=== PATIENT | male | born 1965 | race Two or more races ===

== ENCOUNTER 2018-04-23 10:12 | Emergency (ER) | payer OTHER ==
[~2018-04-23] VITALS: Ht 170.2 cm; Wt 89.0 kg
[2018-04-23 10:21] VITALS: BP 118/86
== END 2018-04-23 11:19 | disposition home or self-care (01) ==
LOC: ED 10:42
DX: S39.012A Strain of muscle, fascia and tendon of lower back, initial encounter (principal); X50.0XXA Overexertion from strenuous movement or load, initial encounter; Y93.G9 Activity, other involving cooking and grilling; Y99.0 Civilian activity done for income or pay; Y92.69 Other specified industrial and construction area as the place of occurrence of the external cause
CPT/HCPCS: 99281

== ENCOUNTER 2018-11-06 09:53 | Emergency (ER) | payer MEDICAID, OTHER ==
[~2018-11-06] VITALS: Ht 170.2 cm; Wt 94.0 kg
--- NOTE | 2018-11-06 10:35 | NUR ---
provided ice pack left wrist
[2018-11-06] MEDS ORDERED: PROPOFOL 10 MG/ML, 20ML ONE (11:24)
[2018-11-06] MEDS ORDERED: LIDOCAINE 1%, 10ML INFIL ONE (11:30)
[2018-11-06] MEDS ORDERED: PROPOFOL 10 MG/ML, 20ML IVPush ONE (11:30)
[2018-11-06] MEDS ORDERED: HYDROmorphone 1 MG/ML, 1ML IV ONE (11:30)
[2018-11-06] MEDS ORDERED: LIDOCAINE-MPF 1%, 5ML ONE (11:31)
[2018-11-06] MEDS ORDERED: HYDROmorphone 1 MG/ML, 1ML ONE (11:32)
--- NOTE | 2018-11-06 11:35 | NUR ---
MEDICATED FOR LEFT WRIST PAIN PER ORDERS. TECH WORKING ON GETTING SUPPLIES REQUESTED BY MD FOR SPLINTING. LIDO AT BEDSIDE FOR ANTICIPATED NERVE BLOCK
[2018-11-06 12:13] VITALS: BP 134/90
--- NOTE | 2018-11-06 12:13 | NUR ---
VS UPDATED AND WNL. AWAITING ORTHOPEDIST. PT RESTING WITH NO COMPLAINTS.
--- NOTE | 2018-11-06 12:33 | NUR ---
ortho at bedside for cast at this time. vss. no needs at this time.
--- NOTE | 2018-11-06 13:50 | NUR ---
additional orders received. pt to ct now.
== END 2018-11-06 15:53 | disposition home or self-care (01) ==
LOC: ED 11:08
DX: S52.502A Unspecified fracture of the lower end of left radius, initial encounter for closed fracture (principal); W01.0XXA Fall on same level from slipping, tripping and stumbling without subsequent striking against object, initial encounter; Y93.89 Activity, other specified; Y92.410 Unspecified street and highway as the place of occurrence of the external cause; Y99.8 Other external cause status
CPT/HCPCS: 25605; 73110; 73200; 73221; 96374; 99284; J1170

== ENCOUNTER 2019-11-01 09:25 | Emergency (ER) | payer MEDICAID ==
[~2019-11-01] VITALS: Ht 170.2 cm; Wt 102.0 kg
[2019-11-01 09:28] VITALS: BP 127/98
[2019-11-01 10:31] LABS: BASOPHILS # (AUTO) 0.04 x10^3/uL (0-0.1); BASOPHILS % (AUTO) 1 % (0-1); EOSINOPHILS # (AUTO) 0.01 x10^3/uL (0-0.4); EOSINOPHILS % (AUTO) 0 % (1-7); LYMPHOCYTES % (AUTO) 15 % (22-44); MD NO; MEAN CORPUSCULAR HEMOGLOBIN 31.3 pg (27.5-34.5); MEAN CORPUSCULAR HGB CONC 33.4 g/dL (33.2-36.2); MEAN CORPUSCULAR VOLUME 93.6 fL (81-97); MEAN PLATELET VOLUME 6.4 fL (7.4-10.4); MONOCYTES # (AUTO) 0.94 x10^3/uL (0.2-0.8); MONOCYTES % (AUTO) 12 % (2-9); NEUTROPHILS # (AUTO) 5.76 x10^3/uL (1.8-6.8); NEUTROPHILS % (AUTO) 72 % (42-75); PLATELET COUNT 275 x10^3/uL (130-400); RED BLOOD COUNT 4.42 x10^6/uL (4.38-5.82); RED CELL DISTRIBUTION WIDTH 13.7 % (9.4-14.8)
[2019-11-01 10:42] LABS: ALBUMIN 3.5 g/dL (3.4-5.0); ANION GAP 8 mmol/L (5-15); CALCIUM 8.8 mg/dL (8.5-10.1); CHLORIDE 105 mmol/L (98-107); CREATININE 0.73 mg/dL (0.7-1.3)
== END 2019-11-01 11:42 | disposition home or self-care (01) ==
LOC: ED 10:03
DX: B34.9 Viral infection, unspecified (principal); R00.0 Tachycardia, unspecified; I10 Essential (primary) hypertension; Z87.891 Personal history of nicotine dependence
CPT/HCPCS: 36415; 71046; 80048; 82040; 85025; 93005; 99285

== ENCOUNTER 2021-01-23 07:14 | Emergency (ER) | payer MEDICAID ==
[~2021-01-23] VITALS: Ht 170.2 cm; Wt 88.5 kg
[2021-01-23 07:47] VITALS: BP 134/88
--- NOTE | 2021-01-23 07:57 | NUR ---
PT PRESENTS TO ED W C/O BLOOD ON PENIS. STATES THEY WERE NOT ABLE TO URINATE THIS MORNING. PT DENIES SEXUAL CONTACT, STATES THE BLOOD MAY BE A RESULT OF PANT ZIPPER CATCHING ON PENIS. PT A&O, RESPS EVEN ANDUNLABORED, VSS, NADN. PT INSTRUCTED TO PROVIDE CLEAN CATCH, UA SUPPLIES AT BEDSIDE.
[2021-01-23] MEDS ORDERED: NEOSPORIN OINT. PKT 1 PACKET ONE (08:05)
--- NOTE | 2021-01-23 08:08 | NUR ---
VERBAL ORDER RECEIVED FOR NEOSPORIN TOPICAL TO BE APPLIED TO PENIS
[2021-01-23] MEDS ORDERED: NEOSPORIN OINT. PKT 1 PACKET TP ONE (08:30)
--- NOTE | 2021-01-23 08:32 | NUR ---
PT INSTRUCTED TO PROVIDE UA, STATES HE HAS NO URGE, REFUSES TO ATTEMPT, WILL REFUSE STRAIGHT CATH IF ORDERED. MAYNOR BRAVO NOTIFIED. NO ADDITIONAL ORDERS RECIEVED.
--- NOTE | 2021-01-23 08:56 | NUR ---
PROVIDER OK'D DISCHARGE WITHOUT URINE. DISCHARGE INSTRUCTIONS REVIEWED WITH PATIENT, UPON DISCHARGE, PT BECAME UPSET AND STATED "CAN YOU GET THE FUCK OUT SO I CAN CHANGE, I SHOULD HAVE [facility] G[facility] TO [facility]". AMBULATED STEADILY TO DISCHARGE, NADN AT DISCHARGE.
== END 2021-01-23 09:00 | disposition home or self-care (01) ==
LOC: ED 08:28
DX: S30.812A Abrasion of penis, initial encounter (principal); I10 Essential (primary) hypertension; F17.200 Nicotine dependence, unspecified, uncomplicated; X58.XXXA Exposure to other specified factors, initial encounter; Y93.89 Activity, other specified; Y92.89 Other specified places as the place of occurrence of the external cause; Y99.8 Other external cause status
CPT/HCPCS: 99282